=== PATIENT | female | born 1990 | race Caucasian/White ===

== ENCOUNTER 2021-03-31 14:43 | Emergency (ER) | payer OTHER ==
[~2021-03-31] VITALS: Ht 175.3 cm; Wt 94.0 kg
[2021-03-31] MEDS ORDERED: CLIN75GE4 TP (14:59)
[2021-03-31] MEDS ORDERED: TRIA15CR61 TP (14:59)
[2021-03-31 15:20] VITALS: BP 137/86
[2021-03-31] MEDS ORDERED: ketorolac trometh inj. 60 MG/2 ML VIAL IM ONE (15:50)
[2021-03-31] MEDS ORDERED: LIDOcaine 5% patch TP ONE (15:50)
== END 2021-03-31 17:12 | disposition home or self-care (01) ==
LOC: ER 14:43
DX: M79.2 Neuralgia and neuritis, unspecified (principal); R20.0 Anesthesia of skin; F17.200 Nicotine dependence, unspecified, uncomplicated; Z88.1 Allergy status to other antibiotic agents
CPT/HCPCS: 96372; 99283; J1885

== ENCOUNTER 2021-05-09 18:44 | Emergency (ER) | payer BC, OTHER ==
[~2021-05-09] VITALS: Ht 175.3 cm; Wt 94.5 kg
--- NOTE | 2021-05-09 19:56 | NUR ---
patient c.o lateral right foot pain, increased when weight bared and movement x 1wk. mild swelling. denies injury. Palpable pulses. move all extremeties
[2021-05-09] MEDS ORDERED: IBUP-1986 PO (20:30)
[2021-05-09 20:41] VITALS: BP 126/87
== END 2021-05-09 20:50 | disposition home or self-care (01) ==
LOC: ER 18:45
DX: S93.602A Unspecified sprain of left foot, initial encounter (principal); Z88.8 Allergy status to other drugs, medicaments and biological substances; Z79.899 Other long term (current) drug therapy; X58.XXXA Exposure to other specified factors, initial encounter; Y93.89 Activity, other specified; Y92.89 Other specified places as the place of occurrence of the external cause; Y99.0 Civilian activity done for income or pay
CPT/HCPCS: 73630; 99283